=== PATIENT | male | born 2000 | race Two or more races ===

== ENCOUNTER 2023-05-12 14:54 | Emergency (ER) | payer MEDICAID ==
[~2023-05-12] VITALS: Ht 182.9 cm; Wt 86.4 kg
[2023-05-12 15:03] VITALS: TEMP 98
[2023-05-12] MEDS ORDERED: ACETAMINOPHEN 500 MG TABLET PO ONE (16:30)
[2023-05-12] MEDS ORDERED: IBUPROFEN 600 MG TABLET PO ONE (16:30)
[2023-05-12] MEDS ORDERED: LIDOCAINE 5% TRANSDERMAL PATCH TD ONE (16:30)
[2023-05-12] MEDS ORDERED: IBUP-1492 PO (17:29)
[2023-05-12] MEDS ORDERED: ACET-3385 PO (17:30)
[2023-05-12 17:42] VITALS: BP 101/45; PULSE 61; RESP 16
== END 2023-05-12 17:47 | disposition home or self-care (01) ==
LOC: EMS 14:54
DX: M54.50 Low back pain, unspecified (principal)
CPT/HCPCS: 72100; 99284; Z7502; Z7610